=== PATIENT | female | born 1935 | race Caucasian/White ===

== ENCOUNTER → 2021-03-17 | Day surgery (SDC) | payer MEDICARE, OTHER ==
[~2021-03-17] MED LIST: ALLOPURINOL300 MG PO; AMIODARONE HCL200 MG PO; BUMETANIDE2 MG PO; CARVEDILOL3.125 MG PO; CEFDINIR300 MG PO; OR PHACO EYE KIT ONE; POTASSIUM CHLO10 ME1 PO; PREOP PHACO EYE KIT ONE; PROBIOTIC & AC1 EACH PO; VITAMIN B122500 MCG; VITAMIN D; WARFARIN SODIUM3 MG PO
[2021-03-17 12:37] LABS: INR 1.22; PROTHROMBIN TIME 16.4 seconds (11.9-14.5)
[2021-03-17 12:38] LABS: PARTIAL THROMBOPLASTIN TIME 27.9 seconds (23.8-35.5)
[2021-03-17 14:35] VITALS: BP 146/70
== END | disposition home or self-care (01) ==
LOC: OR 10:52
PROVIDERS: ATTEND Ophthalmology
DX: H25.11 Age-related nuclear cataract, right eye (principal); I13.0 Hypertensive heart and chronic kidney disease with heart failure and stage 1 through stage 4 chronic kidney disease, or unspecified chronic kidney disease; N18.30 Chronic kidney disease, stage 3 unspecified; I50.9 Heart failure, unspecified; I48.0 Paroxysmal atrial fibrillation; M06.9 Rheumatoid arthritis, unspecified; M19.90 Unspecified osteoarthritis, unspecified site; E78.5 Hyperlipidemia, unspecified; K44.9 Diaphragmatic hernia without obstruction or gangrene; I71.4 Abdominal aortic aneurysm, without rupture; D64.9 Anemia, unspecified; Z88.8 Allergy status to other drugs, medicaments and biological substances; Z01.812 Encounter for preprocedural laboratory examination; Z20.822 Contact with and (suspected) exposure to COVID-19; Z79.01 Long term (current) use of anticoagulants; Z79.899 Other long term (current) drug therapy; Z86.73 Personal history of transient ischemic attack (TIA), and cerebral infarction without residual deficits; Z95.0 Presence of cardiac pacemaker
CPT/HCPCS: 36415; 66984; 85610; 85730; 93005; U0002; V2632